=== PATIENT | female | born 2005 | race Caucasian/White ===

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

== ENCOUNTER 2025-01-06 08:40 | Emergency (ER) | payer OTHER, SELFPAY ==
[2025-01-06 08:46] VITALS: BP 153/85; PULSE 112; RESP 16; TEMP 36.6; O2SAT 95; BMI 23.5
[2025-01-06 09:47] LABS: Appearance Urine Cloudy; Glucose Urine UA Negative (Negative); PH 6.0 (5.0-9.0); Specific Gravity - Urine >= 1.030 (1.005-1.025); UMIC TRIGGER UACC YES
[2025-01-06 09:49] LABS: UPreg QC Valid YES
[2025-01-06 09:58] LABS: UACC Culture Trigger YES
[2025-01-06 09:58] LABS: Cannabinoid Screen Urine Not Detected (Not Detect)
--- NOTE | 2025-01-06 10:37 | ED_ITS ---
HPI - Psych General Chief Complaint: Psychiatric Symptoms Stated Complaint: crisis ? Time Seen by Provider: 01/06/25 09:09 Source: patient, RN notes reviewed and old records reviewed Mode of arrival: ambulatory History of Present Illness ED Provider: Oralia Schroeder PA-C [facility] Narrative: 19-year-old female with no significant past medical history presenting to ED complaining of increased paranoia with auditory & visual hallucinations, depression, anxiety, and vague SI without plan. States she has been feeling this way for many years however worsening, has never seat to help for her symptoms. Reports occasional ETOH use and marijuana use. States her mother/parents control her life. Does not want her parents do know she is in the ED currently. Patient is currently a sophomore in nursing school. Reports whole body pain. Related Data Home Medications ?Medication ?Instructions ?Recorded ?Confirmed No Known Home Meds 10/08/20 01/06/25 Allergies Allergy/AdvReac Type Severity Reaction Status Date / Time No Known Allergies Allergy Verified 01/06/25 16:49 Review of Systems 2 Review of Systems: Yes all other systems are reviewed and are negative Constitutional: Constitutional: Reports as per HPI [facility] Past Medical History Attestation statement: The following information was validated with the patient. Source: old records reviewed Medical History No pertinent past medical history Surgical History No pertinent past surgical history Family History Family History Mother FH: HTN (hypertension) Father FH: HTN (hypertension) Social History Social History Household Members: Family Both parents involved: Yes Housing: House Alcohol intake: never Patient Tobacco Use Status: Never used Tobacco Second Hand Smoke Exposure: No Cognitive needs: No Hearing needs: No Vision needs: No Physical Exam 2 Vital Signs: Vital Signs: Last Vital Signs Temp 97.8 F 01/06/25 08:46 Pulse 112 H 01/06/25 08:46 Resp 16 01/06/25 08:46 BP 153/85 H 01/06/25 08:46 Pulse Ox 95 01/06/25 08:46 O2 Del Method Room Air 01/06/25 08:46 BMI result Body Mass Index 23.5 Const: Other: Tearful General: cooperative, healthy appearing and no acute distress O rientation/consciousness: patient oriented x3 Limitations: no limitations HEENT: Head: Yes normal to inspection and Yes atraumatic Ears: hearing grossly normal bilaterally General nose exam: Normal external nose present Face and sinus: Yes normal facial exam Eyes: General: appearance normal, both eyes and all related structures EOM: EOMs intact bilaterally Neck: Neck: Yes normal visual inspection and Yes no meningeal signs Resp: Effort & Inspection: normal respiratory effort and no respiratory distress Auscultation: clear to auscultation bilaterally Cardio: Rate: regular rate Heart sounds: S1 normal heart sound present and S2 normal heart sound present Skin: Rashes: no rashes Wounds: no wounds Neuro: General: patient oriented x3, tone normal, moves all extremities, no meningeal signs and CN's II-XI intact bilaterally Cranial nerves: Yes CN's II-XII intact bilaterally Gait exam (Neuro): Normal gait present Extrem: General: Yes normal to inspection Psych: Affect: Labile affect present Attitude: cooperative Thought content: no homicidality and Depressive thoughts present Course Course Course Narrative: -labs reassuring. UA contaminated will wait on culture prior to initiating antibiotics. -tox screen negative -patient was evaluated by CARE team and cleared for discharge. Referred to therapy. Patient not sectionable. Not willing to go inpatient voluntarily. Results discussed with patient including worrisome signs and symptoms and strict return precautions, and when to return to the emergency department. They verbalized understanding and feel safe for discharge at this time. Medical Decision Making Medical Decision Making MDM Narrative: 19-year-old female with no significant past medical history presenting to ED complaining of increased paranoia with auditory & visual hallucinations, depression, anxiety, and vague SI without plan. On exam tachycardic, anxious, tearful, labile, depressed thoughts. Concern for increasing paranoia/hallucinations. Rule out organic causes/substance use. Plan: Labs, tox screen, CARE team consult Please refer to course for remaining clinical decision making, interpretation of labs/imaging results, and discussions with consultants and/or family members. Differential Diagnosis Differential Diagnoses: The differential diagnosis associated with the presentation includes As above Admission/Observation Consideration of admission/observation: Escalation of care including admission/observation considered Consult Healthcare Provider Management of the patient was discussed with: Behavioral Health Provider Lab Data MDM Lab Attestation statement: I reviewed the patient's lab results. 01/06/25 10:39 01/06/25 10:39 Labs: Lab Results 01/06/25 01/06/25 01/06/25 Range/Units 09:38 09:39 10:39 WBC 6.6 (4.8-10.8) X10*3/uL RBC 5.28 (4.20-5.50) X10*6/uL Hgb 14.9 (12.0-16.0) g/dl Hct 44.8 (37.0-47.0) % MCV 84.8 (80.0-98.0) fL MCH 28.2 (27.0-33.0) pg MCHC 33.3 (31.0-35.0) g/dl RDW 12.1 (11.0-16.0) % Plt Count 241 (160-400) X10*3/uL MPV 11.2 (9.4-12.3) fL Immature Gran % (Auto) 0.3 (0.0-0.4) % Neut % (Auto) 74.7 H (45-73) % Lymph % (Auto) 17.3 L (20-40) % [place] % (Auto) 7.1 (2-11) % Eos % (Auto) 0.0 (0-4) % Baso % (Auto) 0.6 (0-2) % Lymph # (Auto) 1.2 (1.2-4.9) X10*3/uL [place] # (Auto) 0.5 (0.1-1.2) X10*3/uL Eos # (Auto) 0.0 (0.0-0.4) X10*3/uL Baso # (Auto) 0.0 (0.0-0.2) X10*3/uL Abs Immat Gran (auto) 0.02 (0.00-0.03) X10*3/uL Absolute Neuts (auto) 5.0 (2.0-8.3) x10*3/uL Absolute Nucleated RBC 0.000 (0.0-0.012) X10*3/uL Nucleated RBC % (auto) 0.0 (0.0-0.2) /100WBC Sodium 139 (135-145) mmol/L Potassium 3.9 (3.3-5.1) mmol/L Chloride 106 (96-108) mmol/L Carbon Dioxide 25 (22-29) mmol/L Anion Gap 12 (12-20) BUN 6 L (9-16) mg/dL Creatinine 0.68 (0.5-1.4) mg/dL Estim Creat Clear Calc 114.8 Estimated GFR > 60 Random Glucose 117 H (60-115) mg/dL Calcium 9.9 (8.4-10.2) mg/dL Total Bilirubin 0.5 (0.0-1.0) mg/dL AST 24 (5-31) U/L ALT 14 (0-31) U/L Alkaline Phosphatase 52 (39-117) U/L Total Protein 7.3 (6.5-8.0) g/dL Albumin 4.8 (3.5-5.0) g/dL Urine Color Dark Yellow Urine Appearance Cloudy Urine pH 6.0 (5.0-9.0) Ur Specific [place] >= 1.030 H (1.005-1.025) Urine Protein 30 (1+) H (Neg-Trace) mg/dL Urine Glucose (UA) Negative (Negative) mg/dL Urine Ketones 15 (Negative) mg/dL Urine Blood Negative (Negative) Urine Nitrite Negative (Negative) Ur Leukocyte Esterase Trace H (Negative) Urine RBC 0-2 (0-2) /HPF Urine WBC 6-10 H (0-5) /HPF Ur Squamous Epith Cells 11-20 (0-2) /HPF Urine Bacteria 4+ (None Seen) Hyaline Casts 3-5 (0-2) /LPF Urine Test NEGATIVE (NEGATIVE) Urine Opiates Screen Not Detected (Not Detect) Ur Buprenorphine Scrn Not Detected (Not Detect) ng/mL Ur Oxycodone Screen Not Detected (Not Detect) ng/mL Urine Methadone Screen Not Detected (Not Detect) ng/mL Urine Fentanyl Screen Not Detected (Not Detect) Ur Barbiturates Screen Not Detected (Not Detect) Ur Phencyclidine Scrn Not Detected (Not Detect) Ur Amphetamines Screen Not Detected (Not Detect) U Benzodiazepines Scrn Not Detected (Not Detect) Urine Cocaine Screen Not Detected (Not Detect) U Marijuana (THC) Screen Not Detected (Not Detect) Ethyl Alcohol < 10 mg/dL External Record Review External record reviewed: Inpatient record, Office record, Outpatient record, Prior outpatient labs, Prior outpatient radiology, Primary care record and Outside ED record Tests considered The following testing was considered but not selected: As above Prescription Management I considered prescription management with: Other Chronic Conditions Patient?s care impacted by: Other Social Determinants Patient?s care significantly limited by Social Determinants of Health including: Problems related to primary support group and Other Social Determinant of Health Discharge Plan Discharge Clinical Impression: Depression, Paranoia Patient Disposition: Home, Self-Care Instructions: Depression (ED) Additional Instructions: You were cleared by our CARE team for discharge. You were referred to therapy. If you have any thoughts of hurting herself or anyone else please return to the emergency department Your blood work is otherwise reassuring We are waiting for your urine culture prior to initiating antibiotics Prescriptions: No Action No Known Home Meds Referrals: [facility] [Outside] - 3 days Landy Martines PA-C [Primary Care Provider, Pediatrics] - 1 week Interventions: Cherry-Suicide Risk Severity Scale Last Done: 01/06/25 09:33 Discharge Date/Time: 01/06/25 13:08 Print Language: French
[2025-01-06 10:42] LABS: MANUAL DIFF FLAG NO
[2025-01-06 10:54] LABS: Hematocrit 44.8 % (37.0-47.0); Hemoglobin 14.9 g/dl (12.0-16.0); Imm Gran Abs Auto 0.02 X10*3/uL (0.00-0.03); Imm Gran Pct Auto 0.3 % (0.0-0.4); Lymphocytes Absolute Auto 1.2 X10*3/uL (1.2-4.9); Mean Corpuscular HGB Conc 33.3 g/dl (31.0-35.0); Mean Corpuscular Hemoglobin 28.2 pg (27.0-33.0); Mean Corpuscular Volume 84.8 fL (80.0-98.0); NRBC Abs Auto 0.000 X10*3/uL (0.0-0.012); NRBC Pct Auto 0.0 /100WBC (0.0-0.2); Platelet Count 241 X10*3/uL (160-400); Red Blood Count 5.28 X10*6/uL (4.20-5.50); White Blood Count 6.6 X10*3/uL (4.8-10.8)
[2025-01-06 11:01] LABS: Alanine Aminotransferase 14 U/L (0-31); Albumin Level 4.8 g/dL (3.5-5.0); Alkaline Phosphatase 52 U/L (39-117); Anion Gap 12 (12-20); Aspartate Amino Transferase 24 U/L (5-31); Blood Urea Nitrogen 6 mg/dL (9-16); Calcium 9.9 mg/dL (8.4-10.2); Carbon Dioxide 25 mmol/L (22-29); Chloride 106 mmol/L (96-108); Creatinine Clr Calc Pharmacy 114.8; Estimated Glomerular Filt Rate > 60; Potassium 3.9 mmol/L (3.3-5.1); Sodium 139 mmol/L (135-145); Total Protein 7.3 g/dL (6.5-8.0)
--- OUTSIDE RECORDS SUMMARY | 2025-01-06 11:40 | XMS_ITS | Encounter Summary ---
Author Organization [facility] Address [address] [place] [phone] Phone Care Team Providers Care Mobile Marketing Manager Name Role Phone Unknown, Unknown Primary Care Provider Landy Marina Primary Care Provider [phone]- [phone] Encounter Details Date Type Department Care Team (Late st Contact Info) Description 12/09/2020 Transcribe Orders Virtual Department [address] [place] [id number] Rima Diaz MD [address] [place] [id number] Encounter for laboratory testing for COVID-19 virus (Primary Dx) Social History Tobacco Use Types Packs/Day Years Used Date Smoking Tobacco: Never Assessed Comments Unknown Sex and Gender Information Value Date Recorded Sex Assigned at Female 01/06/2024 5:54 AM EDT Legal Sex Female 8:42 PM EDT Gender Identity Female 01/06/2024 5:54 AM EDT Sexual Orientation Straight 01/06/2024 5: 54 AM EDT documented as of this encounter Plan of Treatment Not on file documented as of this encounter Results * COVID-19 PCR Order (12/19/2020 3:00 PM EDT) COVID Testing Status Specimen received in analyzing lab. Results should be available within 24 to 48 hrs. [facility] Symptomatic? NO [facility] Other 12/19/2020 3:00 PM EDT 12/19/2020 5:35 PM EDT us Rima Diaz MD BODY FLUIDS AND STOOLS ORDER EDUARD Final Result [facility] [address] [place] [address] [facility] [address] [place] [id number] documented in this encounter Visit Diagnoses Diagnosis Encounter for laboratory testing for COVID-19 virus- Primary documented in this encounter Additional Health Concerns Infection Onset Date Last Indicated Resolved Time CoV-Exposed Comment:Recent close contact documented in the COVID-19 PCR/PRO order 12/09/2020 12/09/2020 12/24/2020 1:22 AM E DT CoV-Risk 01/04/2022 01/04/2022 01/15/2022 1:25 AM EDT CoV-Risk 03/28/2024 03/28/2024 04/08/2024 1:22 AM EST Influenza A 03/28/2024 03/28/2024 04/04/2024 1:24 AM EST documented as of this encounter Care Teams Mobile Marketing Manager Relationship Specialty Start Date End Date Unknown, Unknown, PCP - General 12/11/20 01/03/22 Landy Martines PA [address] [place] [address] PCP - General Unknown Provider Specialty 01/04/22 documented as of this encounter Additional Source Comments The information contained in this document represents components of the legal health record. It is not the complete legal health record.[facility]
--- OUTSIDE RECORDS SUMMARY | 2025-01-06 11:40 | XMS_ITS | Clinical Summary ---
Author Organization [facility] Address [address] [place] [id number] Phone Care Team Providers Care Superintendent Horticulture Name Role Phone Landy Martines Primary Care Provider [phone]- [phone] Allergies No known active allergies Medications No known medications Active Problems No known active problems Immunizations Immunization Administration Dates Next Due HPV9 10/07/2019,10/01/2018 Hepatitis A, ped/adol, 2 dose 11/21/2014 Meningococcal MCV4P 11/05/2021,06/27/2016 Tdap 06/27/2016 Social History Tobacco Use Types Packs/Day Years Used Date Smoking Tobacco: Never Smokeless Tobacco: Never Tobacco Cessation:Counseling Given: Not Answered Education Answer Date Recorded Are you interested in more education? Not on rachel e 07/08/2022 Are you concerned about learning? Not on file 07/08/2022 No 07/08/2022 No 07/08/2022 Food Answer Date Recorded Within the past 6 months we worried whether our food would run out before we got money to buy more. Never True 06/24/2024 Within the past 6 months the food we bought just didn't last and we didn't have enough money to get more. Never True Residential Stability Answer Date Recor ded What is your housing situation today? I have aminatateresa montague 06/24/2024 How many times have you move d in the past 12 months? Zero (I did not move) 06/24/2024 Paying for Meds Answer Date Recorded Do you have trouble paying for medicines? No 06/24/2024 Paying Utility Bills Answer Date Record ed Do you have trouble paying your heating or elect ricity bill? No 06/24/2024 Transportation Answer Date Recorded Has the lack of transportati on kept you from medical appointments or from getting medications? No 06/24/2024 Digital Access Answer Date Recorded No 06/24/2024 Yes 06/24/2024 Do you have reliable internet access at home? Ye s 06/24/2024 Do you have a device (e.g., phone, tablet, computer) with a working camera? Yes 06/24/2024 Intimate Partner Violence Answer Date R ecorded Are you denied basic needs s uch as food, clothing, or medical care? No 06/24/2024 In the past 12 months have y ou been in a relationship with a person who hurts, threatens, or tries to control you? No 06/24/2024 Are you denied basic needs s uch as food, clothing, or medical care? No 06/24/2024 In the past 12 months have y ou been in a relationship with a person who hurts, threatens, or tries to control you? No 06/24/2024 Comments Unknown Sex and Gender Information Value Date Recorded Sex Assigned at Female 01/06/2024 5:54 AM EDT Legal Sex Female 8:42 PM EDT Gender Identity Female 01/06/2024 5:54 AM EDT Sexual Orientation Straight 01/06/2024 5: 54 AM EDT Last Filed Vital Signs Vital Sign Reading Time Taken Comments Blood Pressure 128/79 06/24/2024 12:07 PM EDT Pulse 54 06/24/2024 12:07 PM EDT Temperature 36.6 C (97.9 F) 06/24/2024 12:07 PM EDT Respiratory Rate 16 06/24/2024 12:07 PM EDT Oxygen Saturation 100% 06/24/2024 12:07 PM EDT Inhaled Oxygen Concentration - - Weight 59 kg (130 lb) 06/24/2024 12:07 PM EDT Height 162.6 cm (5' 4 ) 06/24/2024 12:07 PM EDT Body Mass Index 22.31 06/24/2024 12:07 PM EDT Plan of Treatment Health Maintenance Due Date Last Done Comments DEVELOPMENTAL/BEHAVIORAL SCREENING (PHQ, PSC, or SWYC) 2008 HEPATITIS A VACCINES (2 of 2 - 2-dose series) 05/22/2015 11/21/2014 COMBINED DTaP,Tdap,Td (2 - T d or Tdap) 07/25/2016 06/27/2016 DEPRESSION SCREENING 2017 CHLAMYDIA SCREENING 2021 MENINGOCOCCAL VACCINES (B) ( 1 of 2 - Standard) 2021 ADOLESCENT UNIVERSAL LIPID SCREENING 2022 HEPATITIS C SCREENING 2023 HIV ONE-TIME SCREENING (18-6 5 YEARS) 2023 INFLUENZA VACCINE (#1) 2024 COVID-19 VACCINE (4 - 2024-2 6 season) 2024 04/24/2021, 08/25/2020, 08/04/2020 SMOKING Hx and SMOKELESS TOBACCO SCREENING 05/09/2025 05/09/2024 BMI ASSESSMENT 06/24/2025 06/24/2024 HEPATITIS B VACCINES Completed 2005, 2005, 2005 MMR VACCINES Completed 10/28/2009, 03/16/2006 VARICELLA VACCINES Completed 10/28/2009, 03/16/2006 HPV VACCINES Completed 10/07/2019, 10/01/2018 MENINGOCOCCAL VACCINES (ACWY) Completed , 06/27/2016 HIB VACCINES Aged Out No longer eligi ble based on patient's age to complete this topic PNEUMOCOCCAL VACCINES (0-49 years) Aged Out No longer eligible b ased on patient's age to complete this topic Medical Devices Not on file Insurance [facility] [employer] [place] [id number] [facility] [employer] [facility] [employer] [facility] [employer] [facility] [employer] [facility] [employer] [facility] [employer] [facility] [employer] [facility] [employer] [facility] [employer] [employer] [employer] [facility] [employer] [employer] [facility] [employer] [employer] [employer] [facility] [employer] [employer] [facility] [employer] FAM[employer] Care Teams Superintendent Horticulture Relationship Specialty Start Date End Date Landy Martines PA [address] [place] [address] [address] [place] [address] PCP - General Unknown Provider Specialty 01/04/22 Additional Source Comments The information contained in this document represents components of the legal health record. It is not the complete legal health record.[facility]
--- OUTSIDE RECORDS SUMMARY | 2025-01-06 11:40 | XMS_ITS | Encounter Summary ---
Author Organization [facility] Address [address] [place] [id number] Phone Care Team Providers Care Bowling Ball Grader And Marker Name Role Phone Landy Martines Primary Care Provider +1- [phone] Encounter Details Date Type Department Care Team ([facility] st Contact Info) Description 06/24/2024 Procedure Pass [facility] - [address] [place] [address] Social History Tobacco Use Types Packs/Day Years Used Date Smoking Tobacco: Never Smokeless Tobacco: Never Education Answer Date Recorded Are you interested [...] is your housing situation today? I have aminata sing 06/24/2024 How many times have you move [...] AM EDT documented as of this encounter Functional Status * Calculated C-SSRS Risk Score (Lifetime/Recent) Answer Date of Assessment Author No Risk Indicated 06/24/2024 12:08 PM EDT Lula Sotelo RN * [place] Suicide Severity Rating Scale (Screener/Recent Self-Report) Question Answer Date of Assessment Author 1. Wish to be (Past 1 Month) No 025 12:08 PM EDT Lula Sotelo RN 2. Non-Specific Active Suici saeed Thoughts (Past 1 Month) No 06/24/2024 12:08 PM EDT Lula Sotelo RN 6. Suicidal Behavior (Lifetime) No 12:08 PM EDT Lula Sotelo RN documented as of this encounter Plan of Treatment Not on file documented as of this encounter Visit Diagnoses Not on filedocumented in this encounter Care Teams Bowling Ball Grader And Marker Relationship Specialty Start Date End Date Landy Martines PA [address] [place] [address] Dr [address] [place] [address] PCP - General Unknown Provider Specialty 01/04/22 documented as of this encounter Additional Source Comments The information contained in this document represents components of the legal health record. It is not the complete legal health record.[facility]
== END 2025-01-06 13:08 | disposition home or self-care (01) ==
PROVIDERS: Emergency Provider Emergency Medicine; PCP Physician Assistant
DX: F33.1 Major depressive disorder, recurrent, moderate (principal); F22 Delusional disorders; F41.9 Anxiety disorder, unspecified; R45.851 Suicidal ideations; Z51.81 Encounter for therapeutic drug level monitoring; Z79.899 Other long term (current) drug therapy
CPT/HCPCS: 36415; 80053; 80307; 81001; 81025; 85025; 87086; 99284; S9485

== ENCOUNTER 2025-01-06 14:58 | Inpatient (IN) | payer OTHER, SELFPAY ==
--- NOTE | ~2025-01-06 | XR_ITS ---
CLINICAL HISTORY: new onset psychosis, pre mri 2 view skull Comparison: None Findings: No fractures or bone lesions. Paranasal sinuses and mastoid air cells clear. Impression: 1. Normal skull This document has been electronically signed by: Kvng Trujillo MD on 01/13/2025 18:42:58
--- NOTE | ~2025-01-06 | XR_ITS ---
CLINICAL HISTORY: new onset psychosis, pre mri 1 view abdomen Comparison: None Findings: Normal bowel gas pattern. Normal stool quantity. No abnormal calcifications. No pneumoperitoneum or pneumatosis. Bones unremarkable Impression: 1. Normal bowel gas pattern This document has been electronically signed by: Kvng Trujillo MD on 01/13/2025 18:43:19
--- NOTE | ~2025-01-06 | CT_ITS ---
CLINICAL HISTORY: new onset psychosis CT Head without contrast Comparison: None provided Findings: No large vessel territory infarct. No acute intracranial hemorrhage. No mass effect, midline shift, or herniation. The pituitary gland and sella are unremarkable. The cerebellar tonsils are appropriately positioned. Orbits: Unremarkable. Paranasal sinuses: Well aerated. The mastoid air cells are well aerated. The soft tissues are unremarkable. No acute displaced calvarial fracture. Impression: No acute intracranial abnormality. This document has been electronically signed by: Tenisha Torres MD on 01/08/2025 18:01:27
--- NOTE | ~2025-01-06 | XR_ITS ---
CLINICAL HISTORY: new onset psychosis, pre mri 1 view chest x-ray. Comparison: None Findings: No consolidation or effusion. Cardiac and mediastinal contours appear unremarkable. Bones unremarkable. Impression: 1. No acute pulmonary disease. This document has been electronically signed by: Kvng Trujillo MD on 01/13/2025 18:42:41
--- NOTE | ~2025-01-06 | MR_ITS ---
EXAMINATION: MR BRAIN WITHOUT CONTRAST CLINICAL INFORMATION: New onset of psychosis. COMPARISON: Correlated to CT dated January 08, 2025. TECHNIQUE: MRI of the brain was obtained using routine sequences without contrast. FINDINGS: No restricted diffusion. No acute intracranial hemorrhage, mass effect, midline shift, hydrocephalus or herniation. Grade 1 matter differentiation is normal. Posterior cranial fossa contents demonstrated no signal abnormality or mass effect. Sellar/suprasellar region is normal. Craniocervical junction is intact with normal position of the cerebellar tonsils. Midline structures are normal. Flow-void signal within the main cerebral vessels is normal. No signal abnormality or mass effect within the intraconal or extraconal compartments of the orbits. No air-fluid levels in the paranasal sinuses. MR/MR head/brain wo con IMPRESSION: No acute or structural brain abnormality. Electronically signed by: Vern Llanes MD 01/15/2025 11:51 AM [facility]
[2025-01-06 16:48] VITALS: BMI 19.5
--- NOTE | 2025-01-06 17:14 | ED.PSYCH ---
HPI - Psych General Chief Complaint: Psychiatric Symptoms Stated Complaint: crisis Time Seen by Provider: 01/06/25 16:09 Source: patient, family (Family member at bedside), RN notes reviewed and old records reviewed Mode of arrival: ambulatory Limitations: no limitations History of Present Illness ED Provider: VALDO Jackson HPI Narrative: 19-year-old female with medical history of paranoia, depression presents to the ED due to increased anxiety, paranoia. Patient states she was in the department earlier today and discharged home. Patient states she went for a visit with her primary care provider and was discussing her feelings of depression and paranoia and was encouraged to come back to the ED. When talking with the patient, she states she is feeling completely fine now. Denies any physical symptoms, SI, HI, AH, VH, drug use, alcohol use Related Data Home Medications ?Medication ?Instructions ?Recorded ?Confirmed No Known Home Meds 10/08/20 01/06/25 Allergies Allergy/AdvReac Type Severity Reaction Status Date / Time No Known Allergies Allergy Verified 01/06/25 16:49 [facility] Past Medical History Medical History No pertinent past medical history Surgical History No pertinent past surgical history Family History Family History Mother FH: HTN (hypertension) Father FH: HTN (hypertension) Social History Social History Household Members: Family Housing: House Alcohol intake: never Patient Tobacco Use Status: Never used Tobacco Second Hand Smoke Exposure: No Advance Directives: No Advance Directives Information Provided: No Do you have a plan to hurt others: No Plan Patient : No Cognitive needs: No Hearing needs: No Vision needs: No Physical Exam Vital Signs: Vital Signs: Last Vital Signs Temp 98 F 01/06/25 21:14 Pulse 85 01/06/25 21:14 Resp 18 01/07/25 06:00 BP 120/82 01/06/25 21:14 Pulse Ox 100 01/06/25 21:14 O2 Del Method Room Air 01/06/25 21:14 BMI result Body Mass Index 19.5 GENERAL APPEARANCE: ?AxOx4, generally well-appearing, no acute distress. HEENT: ?NC, AT. MMM. EOMI, clear conjunctiva, oropharynx clear. NECK: ?Supple without lymphadenopathy.? No stiffness or restricted ROM. HEART:? Normal rate and regular rhythm, normal S1/S1, no m/r/g LUNGS:? CTAB, moving air well. No crackles or wheezes are heard. ABDOMEN: ?Soft, nontender, nondistended with good bowel sounds heard. BACK: No CVAT, no obvious deformity. EXTREMITIES: ?Without cyanosis, clubbing or edema. NEUROLOGICAL: ?Grossly nonfocal. Alert and oriented, moving all 4 extremities. Observed to ambulate with normal gait. Skin: ?Warm and dry without any rash. PSYCH: Patient has a flat affect with extremely intense wide eyed gaze, patient has poor insight on her psychiatric conditions Course Reevaluation(s) Reevaluation #1: Time: 06:28 Date: 01/07/25 Provider: Ralph Mabry MD Patient in physician observation for psychiatric evaluation.? No acute events reported overnight. No current complaints. VS stable.? Patient is in bed search status/pending CARE team evaluation. Will continue to monitor. Medical Decision Making Medical Decision Making MDM Narrative: 19-year-old female with medical history of paranoia, depression presents to the ED due to increased anxiety, paranoia. Patient states she was in the department earlier today and discharged home. Patient states she went for a visit with her primary care provider and was discussing her feelings of depression and paranoia and was encouraged to come back to the ED. When talking with the patient, she states she is feeling completely fine now. Denies any physical symptoms. Denies SI, HI, AH, VH Patient with severe paranoia, with a wide eyed gaze, and poor insight to her psychiatric conditions. I spoke with care team adult protective caseworker Fang who agrees that patient would benefit from inpatient level of care. Patient to be admittied for further evaluation and management. Differential Diagnosis Differential Diagnoses: The differential diagnosis associated with the presentation includes Increased depression Increased anxiety Paranoia Psychosis Admission/Observation Consideration of admission/observation: Escalation of care including admission/observation considered Consult Healthcare Provider Management of the patient was discussed with: Synoptic Meteorologist (CARE team adult protective caseworker Fang) Lab Data Labs: Lab Results 01/06/25 Range/Units 21:23 Urine Opiates Screen Not Detected (Not Detect) Ur Buprenorphine Scrn Not Detected (Not Detect) ng/mL Ur Oxycodone Screen Not Detected (Not Detect) ng/mL Urine Methadone Screen Not Detected (Not Detect) ng/mL Urine Fentanyl Screen Not Detected (Not Detect) Ur Barbiturates Screen Not Detected (Not Detect) Ur Phencyclidine Scrn Not Detected (Not Detect) Ur Amphetamines Screen Not Detected (Not Detect) U Benzodiazepines Scrn Not Detected (Not Detect) Urine Cocaine Screen Not Detected (Not Detect) U Marijuana (THC) Screen Not Detected (Not Detect) Independent Historian Clinical information obtained from an independent historian. History obtained from or confirmed by: Other (Brother at bedside corroborating history) External Record Review External record reviewed: Inpatient record, Office record, Outpatient record and Prior outpatient labs Chronic Conditions Patient?s care impacted by: Other (Depression, paranoia) Discharge Plan Discharge Clinical Impression: Paranoia, Depression Patient Disposition: Admitted As Inpatient Interventions: [place]-Suicide Risk Severity Scale Last Done: 01/06/25 16:51 Print Language: Turkmen
[2025-01-06 21:14] VITALS: BP 120/82; PULSE 85; RESP 16; TEMP 36.6; O2SAT 100
[2025-01-06 22:34] LABS: Cannabinoid Screen Urine Not Detected (Not Detect)
--- NOTE | 2025-01-06 22:55 | MHC.CARE ---
Patient was re evaluated by the Care Team upon return to the ED and found appropriate for an inpatient psychiatric admission. A section 12 was completed and placed in patient's chart at this time.
--- NOTE | 2025-01-07 02:03 | PC.NURSE ---
Assumed care at 1845. Appears internally preoccupied and observed laughing innapropriately at times. Visible on the milieu, isolative to self. Denies SI/HI/AVH. Agreeable to alert staff if feeling unsafe. 15 minute safety checks ongoing. Plan of care ongoing.
[2025-01-07 06:00] VITALS: RESP 18
--- NOTE | 2025-01-07 07:03 | PC.NURSE ---
pt is sitting on her bed, calm. RR even and unlabored. Denies RR even and unlabored, no s/s of distress.
--- NOTE | 2025-01-07 07:32 | PC.NURSE ---
Pt refused BP at this time, sts maybe later . Tech checked o2 level and HR. Pt calm, sitting on the side of her bed. RR even and unlabored. No visible s/s of distress.
[2025-01-07 07:34] VITALS: PULSE 103; O2SAT 100
--- NOTE | 2025-01-07 09:01 | ECG_ITS ---
Test Reason : check prolonged qt Blood Pressure : */* mmHG Vent. Rate : 68 BPM Atrial Rate : 68 BPM P-R Int : 126 ms QRS Dur : 72 ms QT Int : 414 ms P-R-T Axes : 6 63 57 degrees QTcB Int : 440 ms Normal sinus rhythm with sinus arrhythmia Septal infarct , age undetermined Abnormal ECG No previous ECGs available Referred By: John Jackson Electronically Signed By: KAVON MEEHAN
--- NOTE | 2025-01-07 09:36 | MHC.CARE ---
T/W spoke with Pt and Pt gave verbal permission that her mother may come and visit.
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
--- NOTE | 2025-01-07 11:14 | PHA.MEDREC ---
Addendum entered by Fe Eduardo RPh 01/07/25 11:19: REVIEWED BY PHARMACIST Original Note: Pharmacy Consult ? Medication Reconciliation Pharmacy reviewed med rec done by nursing. No Known Home Meds confirmed by nurse; spoke with pt and she confirmed she is not taking any medications at this time.
--- NOTE | 2025-01-07 12:00 | PC.NURSE ---
pt visited with mom earlier and dad just visited. Visit seems to have gone well. pt calm, cooperative.
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
--- NOTE | 2025-01-07 15:17 | PC.NURSE ---
Covering RN Vanesa Mcgee spoke with inpatient psych unit RN and gave report during my lunch break, awaiting staff to escort patient up to the room.
--- NOTE | 2025-01-07 15:32 | PC.NURSE ---
Pt is cooperative, sitting in the day room area watching tv and interacting well with another patient in the pod.
[2025-01-07 17:19] VITALS: BP 126/83; PULSE 67; RESP 16; TEMP 37.6; O2SAT 96
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
[2025-01-08 17:06] LABS: Thyroid Stimulating Hormone 2.35 uIU/mL (0.32-4.0)
[2025-01-08 17:19] LABS: Folate 10.5 ng/mL (> or = 4.0); Vitamin B12 426 pg/mL (200-900)
[2025-01-08 20:00] VITALS: BP 121/80; PULSE 77; RESP 16; TEMP 37.1; O2SAT 99
[2025-01-09 07:00] VITALS: BMI 24.4
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
[2025-01-09 20:00] VITALS: BP 121/75; PULSE 71; RESP 18; TEMP 36.9; O2SAT 100
--- NOTE | 2025-01-10 | EEG_ITS ---
Reason for Exam: Episodes of blanking out Roomed Performed: inpt study History: No history- pt was admitted for increased depression and anxiety- CT was negative Medication: trazodone, risperidone, olanzapine, nicotine, magnesium, hydroxyzine Technical description: Photic stimulation: Completed Hyperventilation: performed- good effort Behavioral state: pleasant but had a period of anxiousness during the study State of Consciousness: awake Skull defect: no Sedation: no Handedness: Right Duration of study:28 min 02 sec Description: This is a 16 channel EEG with an EKG lead. Patient is reported awake during the tracing. Background EEG rhythm is low amplitude fast] with no obvious asymmetry or paroxysmal tendency. Photic stimulation does not produce any significant driving. Hyperventilation is [is unremarkable. No sharp waves, spikes, asymmetric activity, or paroxysmal activity noted. Cardiac lead does not reveal any significant abnormality. Impression: Unremarkable EEG. MTDD
[2025-01-10 08:00] VITALS: BP 139/80; PULSE 120; RESP 98; TEMP 36.6; O2SAT 98
[2025-01-10 08:25] LABS: Iron 67 mcg/dL (30-160); Percent Iron Saturation 23 % (15-50); Total Iron Binding Capacity 289 mcg/dL (228-428); Unsaturated Iron Binding 222 ug/dL
[2025-01-10 08:38] LABS: Ferritin 18 ng/mL (10-122)
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
[2025-01-10 11:02] LABS: HBS Num1 > 1000.00 mIU/mL (0-7.99); HBc Num1 0.10 S/CO (0.00-0.79); HBsAGNum1 0.47 S/CO (0.00-0.99); HIV Num 1 0.06 S/CO (0.00-0.99); Hepatitis A Antibody IgM 0.40 Index (0-0.79); Hepatitis B Surface Antigen Negative (Negative); ~HepC Num1 0.09 S/CO (0.00-0.79); ~Hepatitis A Antibody IgM Nonreactive (Nonreactive); ~Hepatitis B Surface Antibody REACTIVE (Nonreactive); ~Hepatitis C Antibody Nonreactive (Nonreactive)
[2025-01-10 20:26] VITALS: BP 135/87; PULSE 94; RESP 16; TEMP 36.1; O2SAT 99
[2025-01-11 08:00] VITALS: BP 116/81; PULSE 96; TEMP 36.4; O2SAT 97
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
[2025-01-11 20:00] VITALS: BP 135/69; PULSE 125; RESP 16; TEMP 36.8; O2SAT 98
[2025-01-12 08:00] VITALS: BP 106/56; PULSE 69; RESP 15; TEMP 35.9; O2SAT 99
[2025-01-12 20:00] VITALS: BP 128/76; PULSE 106; RESP 15; TEMP 37.2; O2SAT 99
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
[2025-01-13 08:00] VITALS: BP 131/67; PULSE 124; RESP 18; TEMP 36.6; O2SAT 99
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
[2025-01-13 19:04] LABS: Proteinase 3 PR3 Antibodies <1.0 AI
[2025-01-13 20:00] VITALS: BP 135/80; PULSE 106; TEMP 36.3; O2SAT 100
[2025-01-13] MEDS: Magnesium Hydrox/Alum Hydrox 30 ML ORAL.SUSP PO (20:24)
[2025-01-14 08:00] VITALS: BP 124/82; PULSE 107; TEMP 36.8; O2SAT 99
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
[2025-01-14 12:33] LABS: Bacterial Vaginosis PCR NEGATIVE (Negative); Candida Group PCR NOT DETECTED (Not Detect); Candida glab krusei PCR NOT DETECTED (Not Detect); Trichomonas vaginalis PCR NOT DETECTED (Not Detect)
[2025-01-14 20:00] VITALS: BP 134/84; PULSE 111; TEMP 36.9; O2SAT 99
[2025-01-15 08:06] VITALS: BP 128/82; PULSE 98; TEMP 37.1; O2SAT 99
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
[2025-01-15 20:20] VITALS: BP 145/82; PULSE 98; RESP 16; TEMP 36.4; O2SAT 100
[2025-01-16 07:00] VITALS: BMI 24.8
[2025-01-16 09:30] VITALS: BP 143/84; PULSE 78; RESP 14; TEMP 36.8; O2SAT 98
[2025-01-16 14:59] LABS: Beta-2 Glycoprotein I Ab IgG <2.0 U/mL (<20.0); Beta-2 Glycoprotein I Ab IgM <2.0 U/mL (<20.0); Beta-2 Glycoprotein I Ab, IgA <2.0 U/mL (<20.0); Phosphatidylserine PT IgM 58 U (<=30)
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
[2025-01-16 20:14] VITALS: BP 159/77; PULSE 76; RESP 18; TEMP 36.8; O2SAT 99
[2025-01-16] MEDS: Milk of Magnesia 30 ML ORAL.SUSP PO (20:45)
[2025-01-17 08:00] VITALS: BP 133/69; PULSE 87; RESP 15; TEMP 36.3; O2SAT 98
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
[2025-01-17 20:00] VITALS: BP 134/79; PULSE 111; RESP 15; TEMP 36.3; O2SAT 100
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
[2025-01-18 08:00] VITALS: BP 137/68; PULSE 88; RESP 18; TEMP 36.6; O2SAT 98
[2025-01-18 20:00] VITALS: BP 162/75; PULSE 98; RESP 15; TEMP 37.2; O2SAT 98
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
[2025-01-19 08:00] VITALS: BP 115/71; PULSE 102; RESP 18; TEMP 36.6; O2SAT 98
[2025-01-19] MEDS: Magnesium Hydrox/Alum Hydrox 30 ML ORAL.SUSP PO (13:30)
[2025-01-19 19:53] VITALS: BP 140/82; PULSE 96; RESP 15; TEMP 37; O2SAT 98
[2025-01-20 08:00] VITALS: BP 106/73; PULSE 90; RESP 15; TEMP 36.3; O2SAT 98
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
[2025-01-20 20:00] VITALS: BP 131/78; PULSE 92; RESP 18; TEMP 36.6; O2SAT 98
--- NOTE | 2025-01-21 | ECG_ITS ---
Test Reason : chest pain Blood Pressure : */* mmHG Vent. Rate : 73 BPM Atrial Rate : 73 BPM P-R Int : 128 ms QRS Dur : 74 ms QT Int : 408 ms P-R-T Axes : 15 65 50 degrees QTcB Int : 449 ms Normal sinus rhythm Normal ECG When compared with ECG of 07-Jan-2025 09:10, Criteria for Septal infarct are no longer Present Referred By: Bre Barrios Electronically Signed By: BEATRIS ROGEL MD
[2025-01-21 08:00] VITALS: BP 124/63; PULSE 84; RESP 16; TEMP 36.7; O2SAT 97
[2025-01-21 09:38] LABS: Anti Nuclear Antibody Screen NEGATIVE (NEGATIVE)
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
[2025-01-21 20:00] VITALS: BP 116/71; PULSE 85; TEMP 37.1; O2SAT 100
[2025-01-21 21:15] VITALS: BP 120/76; PULSE 84; TEMP 36.9; O2SAT 98
[2025-01-22 08:00] VITALS: BP 125/61; PULSE 72; RESP 14; TEMP 36.1; O2SAT 100
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
[2025-01-22 20:00] VITALS: BP 112/82; PULSE 96; RESP 16; TEMP 36.7; O2SAT 100
[2025-01-23 07:00] VITALS: BMI 25.5
[2025-01-23 08:00] VITALS: BP 119/60; PULSE 78; RESP 16; TEMP 36.6; O2SAT 97
[2025-01-23 09:01] LABS: Cholesterol 201 mg/dL (<200); HDL Cholesterol 75 mg/dL (>40); Triglycerides 59 mg/dL (<150)
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
== END 2025-01-23 11:00 | disposition home or self-care (01) | DRG 881 ==
LOC: HO.ED 01-07 13:39 → HO.PM5 01-07 14:11
PROVIDERS: Physician Assistant; Admitting Provider Clinical Nurse Specialist Psychiatric/Mental Health, Adult; Emergency Provider Student in an Organized Health Care Education/Training Program; PCP Physician Assistant; Visit Provider Clinical Nurse Specialist Psychiatric/Mental Health, Adult
DX: F32.A Depression, unspecified (principal); F43.10 Post-traumatic stress disorder, unspecified; F22 Delusional disorders; Z91.52 Personal history of nonsuicidal self-harm; Z79.899 Other long term (current) drug therapy
CPT/HCPCS: 36415; 70250; 70450; 70551; 71045; 74018; 80061; 80307; 81515; 82607; 82728; 82746; 83036; 83516; 83540; 84443; 84702; 86015; 86021; 86038; 86140; 86146; 86147; 86431; 86704; 86706; 86709; 86803; 87086; 87340; 87389; 93005; 95816; 99285; S9485

== ENCOUNTER → 2025-01-07 09:01 | Outpatient (BNV) | payer OTHER, SELFPAY | PROVIDERS: Admitting Provider Clinical Nurse Specialist Psychiatric/Mental Health, Adult; Emergency Provider Student in an Organized Health Care Education/Training Program; PCP Physician Assistant; Visit Provider Internal Medicine | DX: Z13.6 Encounter for screening for cardiovascular disorders (principal) | CPT/HCPCS: 93010 ==

== ENCOUNTER 2025-01-07 14:02 | Outpatient (BNV) | payer OTHER, SELFPAY | END 2025-01-21 23:05 | PROVIDERS: Admitting Provider Clinical Nurse Specialist Psychiatric/Mental Health, Adult; Emergency Provider Student in an Organized Health Care Education/Training Program; PCP Physician Assistant; Visit Provider Internal Medicine Cardiovascular Disease | DX: R07.9 Chest pain, unspecified (principal) | CPT/HCPCS: 93010 ==

== ENCOUNTER 2025-01-07 14:02 | Outpatient (BNV) | payer OTHER, SELFPAY | END 2025-01-13 18:25 | PROVIDERS: Admitting Provider Clinical Nurse Specialist Psychiatric/Mental Health, Adult; Emergency Provider Student in an Organized Health Care Education/Training Program; PCP Physician Assistant; Visit Provider Radiology Diagnostic Radiology | DX: Z01.818 Encounter for other preprocedural examination (principal); F29 Unspecified psychosis not due to a substance or known physiological condition | CPT/HCPCS: 70250; 71045; 74018 ==

== ENCOUNTER 2025-01-07 14:02 | Outpatient (BNV) | payer OTHER, SELFPAY | END 2025-01-15 09:00 | PROVIDERS: Admitting Provider Clinical Nurse Specialist Psychiatric/Mental Health, Adult; Emergency Provider Student in an Organized Health Care Education/Training Program; PCP Physician Assistant; Visit Provider Radiology Diagnostic Radiology | DX: F29 Unspecified psychosis not due to a substance or known physiological condition (principal) | CPT/HCPCS: 70551 ==

== ENCOUNTER 2025-01-07 14:02 | Outpatient (BNV) | payer OTHER, SELFPAY | END 2025-01-10 10:30 | PROVIDERS: Admitting Provider Clinical Nurse Specialist Psychiatric/Mental Health, Adult; Emergency Provider Student in an Organized Health Care Education/Training Program; PCP Physician Assistant; Visit Provider Psychiatry & Neurology Neurology | DX: R55 Syncope and collapse (principal) | CPT/HCPCS: 95816 ==

== ENCOUNTER 2025-01-07 14:02 | Outpatient (BNV) | payer OTHER, SELFPAY | END 2025-01-08 17:27 | PROVIDERS: Admitting Provider Clinical Nurse Specialist Psychiatric/Mental Health, Adult; Emergency Provider Student in an Organized Health Care Education/Training Program; PCP Physician Assistant; Visit Provider Student in an Organized Health Care Education/Training Program | DX: F23 Brief psychotic disorder (principal) | CPT/HCPCS: 70450 ==

== ENCOUNTER → 2025-01-07 14:02 | Outpatient (BNV) | payer OTHER, SELFPAY | PROVIDERS: Admitting Provider Clinical Nurse Specialist Psychiatric/Mental Health, Adult; Emergency Provider Student in an Organized Health Care Education/Training Program; PCP Physician Assistant; Visit Provider Nurse Practitioner Family | DX: F32.A Depression, unspecified (principal) | CPT/HCPCS: 99221 ==

== ENCOUNTER → 2025-01-07 14:02 | Outpatient (BNV) | payer OTHER, SELFPAY | PROVIDERS: Admitting Provider Clinical Nurse Specialist Psychiatric/Mental Health, Adult; Emergency Provider Student in an Organized Health Care Education/Training Program; PCP Physician Assistant; Visit Provider Clinical Nurse Specialist Psychiatric/Mental Health, Adult | DX: F32.A Depression, unspecified (principal); F22 Delusional disorders; F43.10 Post-traumatic stress disorder, unspecified | CPT/HCPCS: 90792 ==

== ENCOUNTER 2025-01-24 08:45 | Outpatient (AMB) | payer OTHER, SELFPAY ==
--- NOTE | 2025-01-24 08:52 | MHC.OFVISPED ---
Pediatric Intake Visit Reasons: TH-discharge follow up psychosis [phone] Workers' Compensation Mediator Required: No Accompanied by: Self / Same As Patient Allergies No Known Allergies Allergy (Verified 01/24/25 08:52) Medication List - Last Reconciled 01/24/25 by Landy Martines PA-C acetaminophen 650 mg (2 x 325 mg) PO Q6H PRN hydrocortisone 1% 1 appl See Protocol topical BID PRN hydroxyzine HCl 25 mg PO Q6H PRN lamotrigine 25 mg PO BID magnesium oxide 400 mg PO BEDTIME [Midol Complete 2 tabs PO TID PRN] nicotine (polacrilex) 4 mg buccal Q2H PRN risperidone 4 mg (2 x 2 mg) PO BEDTIME trazodone 50 mg PO BEDTIME MRX1 PRN HPI Comments Details: Patient admitted to psychiatric unit approx 2 weeks ago, discharged yesterday. Discharge diagnosis of PTSD and psychosis resulting from this. Today she states she is feeling much better, thought content is normal, not expressing any further ideas of paranoia. Patient today is at home in her parent's house, she is considering moving in with her brother. 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 She has an appt with a therapist next week, and an appt with psychiatry on 02/17. She was discharged on risperdal, trazadone, hydroxyzine, and lamotrigine. She states initially this combination caused significant fatigue however she is now feeling better with it. Notes she does not take the trazadone every night for sleep, last night she slept very well without, today she is feeling less fatigued. [facility] Medical History No pertinent past medical history Surgical History No pertinent past surgical history Family History Mother FH: HTN (hypertension) Father FH: HTN (hypertension) Social History Household Members: Family Household Members Other:: parents Both parents involved: Yes Housing: House Do you presently have visiting nurse or other home services: No Alcohol intake: never Patient Tobacco Use Status: Never used Tobacco Second Hand Smoke Exposure: No service: No Sexual orientation: Unable to collect Cognitive needs: No Hearing needs: No Vision needs: No Review of Systems Const All systems reviewed & are unremarkable except as noted in HPI and below Pediatric Exam Const Constitutional General: cooperative, healthy appearing, comfortable and no acute distress Telehealth Telehealth Telehealth Platform: [employer] Location of provider rendering services: practice address Location of patient: address on file Patient Identification confirmed using: Name, : Yes Telehealth method: video Patient verbally consented to treatment: Yes Patient verbally consented to billing insurance company: Yes Patient informed of any privacy concerns related to visit: Yes Minutes spent on Phone/Video with Pt.: 15 Assessment & Plan Assessment & Plan (1) Paranoia: Code(s): F22 - Delusional disorders Category: Medical Plan: Patient greatly improved since her last visit here. Continue with all meds as prescribed. F/up with therapy and psychiatrist. F/up here routinely, as needed. Coding Level of Care Code Tele Est Pt Level 4 (80675) Diagnoses Paranoia F22
--- OUTSIDE RECORDS SUMMARY | 2025-01-24 09:02 | XMS_ITS | Clinical Summary ---
Author Organization [facility] Address [address] [place] [id number] Phone Care Team Providers Care Executive Vice President Business Development Name Role Phone Landy Martines Primary Care Provider +1- [phone] Allergies No known active allergies Medications No [...] on patient's age to complete this topic IPV VACCINES Aged Out No longer eligi ble based on patient's age to complete this topic PNEUMOCOCCAL VACCINES (0-49 years) Aged Out No longer eligible b ased on patient's age to complete this topic Medical Devices Not on file Insurance [facility] EMPLOYEES FAMILY EMPLOYEES FAMILY EMPLOYEES FAMILY [address] [place] [address] EMPLOYEES FAMILY [facility] [employer] FAMILY EMPLOYEES FAMILY [facility] [employer] FAMILY [facility] [employer] FAMILY [facility] [employer] FAMILY [facility] [employer] FAM[employer] [facility] [employer] FAMILY [facility] [employer] FAMILY [facility] [employer] FAM[employer] [facility] [employer] [employer] [employer] [facility] [employer] [facility] [employer] FAM[employer] [facility] [employer] FAMILY Care Teams Executive Vice President Business Development Relationship Specialty Start Date End Date Landy Martines PA [address] [place] [address] [place] [id number] PCP - General Unknown Provider Specialty 01/04/22 Additional Source Comments The information contained in this document represents components of the legal health record. It is not the complete legal health record.[facility]
--- OUTSIDE RECORDS SUMMARY | 2025-01-24 09:02 | XMS_ITS | Encounter Summary ---
Author Organization [facility] Address [address] [place] [address] Phone Care Team Providers Care Step Down Nurse Name Role Phone Landy Martines Primary Care Provider +1- [phone] Encounter Details Date Type Department Care Team ([facility] st Contact Info) Description 06/24/2024 Procedure Pass [facility] - [address] [place] [address] Social History Tobacco Use Types Packs/Day Years [...] 12:08 PM EDT Lula Sotelo RN * Cole Suicide Severity Rating Scale (Screener/Recent Self-Report) Question [...] on filedocumented in this encounter Care Teams Step Down Nurse Relationship Specialty Start Date End Date Landy Martines PA [address] [place] [address] [address] [place] [address] PCP - General Unknown Provider Specialty 01/04/22 documented as of this encounter Additional Source Comments The information contained in this document represents components of the legal health record. It is not the complete legal health record.[facility]
--- OUTSIDE RECORDS SUMMARY | 2025-01-24 09:02 | XMS_ITS | Encounter Summary ---
Author Organization [facility] Address [address] [place] [address] Phone Care Team Providers Care Roll Tube Setter Name Role Phone Unknown, Unknown Primary Care Provider Landy Marina Primary Care Provider +1- [phone] Encounter Details Date Type Department Care Team (Late st Contact Info) Description 12/09/2020 Transcribe Orders Virtual Department [address] [place] [id number] Rima Diaz MD [address] [place] [phone] Encounter for laboratory testing for COVID-19 virus [...] be available within 24 to 48 hrs. [facility] Symptomatic? NO [facility] Other 12/19/2020 3:00 PM EDT 12/19/2020 5:35 PM EDT us Rima Diaz MD LAB GENERAL ORDERABLES Final Result [facility] [address] [place] [address] [facility] [address] [place] [phone] documented in this encounter Visit Diagnoses Diagnosis [...] documented as of this encounter Care Teams Roll Tube Setter Relationship Specialty Start Date End Date Unknown, Unknown, PCP - General 12/11/20 01/03/22 Landy Martines PA [address] [place] [address] PCP - General Unknown Provider Specialty 01/04/22 documented as of this encounter Additional Source Comments The information contained in this document represents components of the legal health record. It is not the complete legal health record.[facility]
== END 2025-01-24 09:55 | disposition home or self-care (01) ==
LOC: HO.HMCP 08:46
PROVIDERS: PCP Physician Assistant; Visit Provider Physician Assistant
DX: F22 Delusional disorders (principal)